=== PATIENT | female | born 1965 | race Caucasian/White ===

== ENCOUNTER 2018-03-15 19:52 | Inpatient (IN) ==
[2018-03-15] MEDS ORDERED: ONDANSETRON 4 MG/2 ML VIAL IV STA (20:15)
[2018-03-15] MEDS ORDERED: ORPHENADRINE 60 MG/2 ML VIAL IV STA (20:15)
[2018-03-15] MEDS ORDERED: ASPIRIN 325 MG TABLET PO STA (20:15)
[2018-03-15] MEDS ORDERED: KETOROLAC 30 MG/1 ML VIAL IV STA (20:15)
[2018-03-15] MEDS ORDERED: PANTOPRAZOLE 40 MG VIAL IV STA (20:21)
[2018-03-15] MEDS ORDERED: METOCLOPRAMIDE 10 MG/2 ML VIAL IV STA (20:21)
[2018-03-15 20:59] LABS: Basophils % 1.1 % (0.0-0.8); Eosinophils % 1.1 % (0.00-10.9); Hematocrit 26.3 VOL% (35.7-47.0); Hemoglobin 9.3 GM/DL (12.0-16.0); Immature Granulocytes % 1.9 %; Immature Granulocytes Absolute 0.07 #; Lymphocytes # 0.4 10*3/uL (1.4-4.0); Mean Corpuscular HGB Conc 35.4 GM/DL (32-36); Mean Corpuscular Hemoglobin 30 PG (27-34); Mean Corpuscular Volume 84.3 FL (87-102); Mean Platelet Volume 9.6 FL (9.6-12.0); Monocytes # 0.4 10*3/uL (0.11-0.8); Monocytes % 10.7 % (1.7-12.7); Neutrophils # 2.8 10*3/uL (1.4-7.4); Neutrophils % 74.2 % (38.7-73.9); Platelet Count 302 T/CUMM (130-400); Red Blood Count 3.12 MC/CUMM (3.8-5.5); Red Cell Distribution Width 15.6 % (9.3-17.3); White Blood Count 3.7 T/CUMM (4-12)
[2018-03-15 21:11] LABS: PT Patient Result 10.1 SECS; Partial Thromboplastin Time 29.2 SECS (0-40)
[2018-03-15 21:17] LABS: Apearance,Urine CLEAR (Clear); Bilirubin,Urine Negative (Negative); Blood, Urine Negative (Negative); Glucose,Urine (UA) Negative (Negative); Ketones,Urine Negative (Negative); Mucus,Urine Occasional /LPF (Occasional); Nitrite,Urine Negative (Negative); Protein,Urine Negative; Urine Color Colorless (Yellow); Urine Specific Gravity 1.002 (1.001-1.035); Urine Urobilinogen < 2.0 EU/DL (0.2-1.0); WBC,Urine <1 /HPF (0-6)
[2018-03-15 21:21] LABS: Alanine Aminotransferase 50 U/L (13-56); Albumin 3.6 G/DL (3.4-5.0); Alkaline Phosphatase 104 U/L (45-117); Aspartate Amino Transferase 57 U/L (0-37); Bilirubin,Total < 0.39 MG/DL (0.2-1.0); Blood Urea Nitrogen 12 MG/DL (7-18); Calcium 9.1 MG/DL (8.5-10.1); Glucose 114 MG/DL (74-106); Osmolality,Calculated 240.3 MOS/KG (273-304); Potassium 3.8 MMOL/L (3.5-5.1); Total Protein 7.1 G/DL (6.4-8.3); Troponin I < 0.015 NG/ML (0.00-0.045)
[2018-03-15 21:32] LABS: Sodium 119 MMOL/L (136-145)
[2018-03-15] MEDS ORDERED: ACETAMINOPHEN 325 MG TABLET PO PRN (22:47)
[2018-03-15] MEDS ORDERED: ONDANSETRON 4 MG/2 ML VIAL IV PRN (22:47)
[2018-03-15] MEDS ORDERED: LACTULOSE 20 GM/30 ML UDCUP PO PRN (22:47)
[2018-03-15] MEDS ORDERED: diphenhydrAMINE CAP 25 MG CAPSULE PO PRN (22:47)
[2018-03-15] MEDS ORDERED: LORazepam 0.5 MG TABLET PO PRN (23:11)
[2018-03-15] MEDS ORDERED: ALPRAZolam 0.25 MG TABLET PO PRN (23:18)
[2018-03-15 23:49] LABS: Creatinine,Urine Random < 13 MG/DL; Total Protein,Urine Random < 5 MG/DL
[2018-03-16] MEDS: LORazepam 1 MG TABLET PO SCH ×2 (00:03→00:14)
[2018-03-16] MEDS: SODIUM CHLORIDE 0.9% 1,000 ML IV SCH ×3 (00:13→15:51)
[2018-03-16 05:43] LABS: Basophils % 1.2 % (0.0-0.8); Eosinophils # 0.1 10*3/uL (0.0-0.87); Eosinophils % 1.5 % (0.00-10.9); Hematocrit 26.3 VOL% (35.7-47.0); Hemoglobin 9.1 GM/DL (12.0-16.0); Immature Granulocytes % 2.8 %; Immature Granulocytes Absolute 0.09 #; Lymphocytes # 0.5 10*3/uL (1.4-4.0); Lymphocytes % 15.8 % (21.3-54.2); Mean Corpuscular HGB Conc 34.6 GM/DL (32-36); Mean Corpuscular Hemoglobin 30 PG (27-34); Mean Corpuscular Volume 86.5 FL (87-102); Mean Platelet Volume 9.2 FL (9.6-12.0); Monocytes # 0.4 10*3/uL (0.11-0.8); Monocytes % 13.6 % (1.7-12.7); Neutrophils # 2.1 10*3/uL (1.4-7.4); Neutrophils % 65.1 % (38.7-73.9); Platelet Count 299 T/CUMM (130-400); Red Blood Count 3.04 MC/CUMM (3.8-5.5); Red Cell Distribution Width 15.5 % (9.3-17.3); White Blood Count 3.2 T/CUMM (4-12)
[2018-03-16] MEDS ORDERED: CLINDAMYCIN 300 MG CAPSULE PO SCH (06:00)
[2018-03-16 06:02] LABS: Calcium 8.3 MG/DL (8.5-10.1); Osmolality,Calculated 251.4 MOS/KG (273-304); Potassium 4.1 MMOL/L (3.5-5.1)
[2018-03-16 06:05] LABS: Calcium 8.5 MG/DL (8.5-10.1); Osmolality,Calculated 251.4 MOS/KG (273-304); Potassium 4.1 MMOL/L (3.5-5.1); Risk Ratio 2.45; VLDL CHOLESTEROL 12.6 MG/DL
[2018-03-16] MEDS ORDERED: cefTRIAXone 1,000 MG in SYRINGE 1 EACH IV SCH (08:30)
[2018-03-16] MEDS ORDERED: CYANOCOBALAMIN 500 MCG TABLET PO SCH (09:00)
[2018-03-16] MEDS ORDERED: CHOLECALCIFEROL 1,000 UNIT TABLET PO SCH (09:00)
[2018-03-16] MEDS ORDERED: PANTOPRAZOLE 40 MG TABLET PO SCH (09:00)
[2018-03-16 12:34] LABS: Calcium 8.5 MG/DL (8.5-10.1); Osmolality,Calculated 257.8 MOS/KG (273-304); Potassium 4.1 MMOL/L (3.5-5.1)
[2018-03-16 15:42] VITALS: BP 135/82
[2018-03-17 13:31] LABS: Osmolality, Urine 143 mOsm/kg (150 - 1150)
[2018-03-17 16:26] LABS: Osmolality, Serum 242 mOsm/kg (275 - 295)
== END 2018-03-16 15:15 | disposition home or self-care (01) | DRG 641 ==
LOC: N.ED 19:52 → N.EDINP 22:47 → N.5E 03-16 00:23
PROVIDERS: ADMIT Hospitalist; ATTEND Hospitalist

== ENCOUNTER 2018-03-27 12:51 | Inpatient (IN) ==
[2018-03-27] MEDS ORDERED: ALUMINUM/MAGNES/SIMETH MAX STR 30 ML UDCUP PO PRN (13:10)
[2018-03-27] MEDS ORDERED: ALPRAZolam 0.25 MG TABLET PO PRN (13:10)
[2018-03-27] MEDS ORDERED: ONDANSETRON 4 MG/2 ML VIAL IV PRN (13:10)
[2018-03-27] MEDS ORDERED: PROMETHAZINE INJ 25 MG in SODIUM CHLORIDE 0.9% 50 ML IV PRN (13:10)
[2018-03-27] MEDS ORDERED: MYLANTA/LIDO VISC 2:1 300 ML BOTTLE SWISH/SPIT PRN (13:10)
[2018-03-27] MEDS ORDERED: BENZTROPINE 2 MG/2 ML AMP IV PRN (13:10)
[2018-03-27] MEDS ORDERED: traMADol 50 MG TABLET PO PRN (13:10)
[2018-03-27] MEDS ORDERED: ACETAMINOPHEN 325 MG TABLET PO PRN (13:10)
[2018-03-27] MEDS ORDERED: MYLANTA/LIDO VISC 2:1 300 ML BOTTLE SWISH/SWAL PRN (13:10)
[2018-03-27] MEDS ORDERED: diphenhydrAMINE CAP 25 MG CAPSULE PO PRN (13:10)
[2018-03-27] MEDS ORDERED: chlorproMAZINE 25 MG TABLET PO PRN (13:10)
[2018-03-27] MEDS ORDERED: MAGNESIUM HYDROXIDE SUSP 30 ML UDCUP PO PRN (13:10)
[2018-03-27] MEDS ORDERED: TEMAZEPAM 7.5 MG CAPSULE PO PRN (13:10)
[2018-03-27] MEDS ORDERED: guaiFENesin 200 MG/10 ML UDCUP PO PRN (13:10)
[2018-03-27] MEDS ORDERED: chlorproMAZINE INJ 50 MG in SODIUM CHLORIDE 0.9% 100 ML IV PRN (13:10)
[2018-03-27] MEDS ORDERED: LACTULOSE 20 GM/30 ML UDCUP PO PRN (13:10)
[2018-03-27] MEDS ORDERED: chlorproMAZINE INJ 25 MG in SODIUM CHLORIDE 0.9% 100 ML IV PRN (13:10)
[2018-03-27] MEDS ORDERED: LOPERAMIDE 2 MG CAPSULE PO PRN ×2 (13:10)
[2018-03-27] MEDS ORDERED: SODIUM CHLORIDE 0.9% 1,000 ML IV SCH (13:30)
[2018-03-27] MEDS ORDERED: SODIUM CHLORIDE 3% INJ 500 ML IV SCH (15:30)
[2018-03-27 15:32] LABS: Basophils % 0.5 % (0.0-0.8); Hematocrit 27.2 VOL% (35.7-47.0); Hemoglobin 9.7 GM/DL (12.0-16.0); Immature Granulocytes % 0.5 %; Immature Granulocytes Absolute 0.02 #; Lymphocytes # 0.3 10*3/uL (1.4-4.0); Lymphocytes % 7.3 % (21.3-54.2); Mean Corpuscular HGB Conc 35.7 GM/DL (32-36); Mean Corpuscular Hemoglobin 30 PG (27-34); Mean Corpuscular Volume 85.3 FL (87-102); Mean Platelet Volume 9.5 FL (9.6-12.0); Monocytes # 0.3 10*3/uL (0.11-0.8); Monocytes % 6.6 % (1.7-12.7); Neutrophils # 3.6 10*3/uL (1.4-7.4); Neutrophils % 85.1 % (38.7-73.9); Platelet Count 310 T/CUMM (130-400); Red Blood Count 3.19 MC/CUMM (3.8-5.5); Red Cell Distribution Width 15.2 % (9.3-17.3); White Blood Count 4.3 T/CUMM (4-12)
[2018-03-27 16:11] LABS: Albumin 3.6 G/DL (3.4-5.0); Bilirubin,Total 0.4 MG/DL (0.2-1.0); Calcium 8.3 MG/DL (8.5-10.1); Osmolality,Calculated 242.9 MOS/KG (273-304); Total Protein 7.2 G/DL (6.4-8.3)
[2018-03-27 16:28] LABS: Apearance,Urine CLEAR (Clear); Bilirubin,Urine Negative (Negative); Blood, Urine Small mg/dL (Negative); Glucose,Urine (UA) Negative (Negative); Ketones,Urine Negative (Negative); Nitrite,Urine Negative (Negative); Protein,Urine Negative; RBC,Urine <1 /HPF (0-4); Urine Color Colorless (Yellow); Urine Specific Gravity 1.002 (1.001-1.035); Urine Urobilinogen < 2.0 EU/DL (0.2-1.0)
[2018-03-28 07:09] LABS: Calcium 8.6 MG/DL (8.5-10.1); Osmolality,Calculated 251.2 MOS/KG (273-304); Potassium 4.7 MMOL/L (3.5-5.1)
[2018-03-28 08:18] VITALS: BP 125/92
== END 2018-03-28 11:10 | disposition home or self-care (01) | DRG 641 ==
LOC: N.4E 13:40
PROVIDERS: ADMIT Specialist; ATTEND Specialist

== ENCOUNTER 2018-11-11 09:12 | Inpatient (IN) ==
[2018-11-11] MEDS ORDERED: FUROSEMIDE 100 MG/10 ML VIAL IV STA (10:00)
[2018-11-11 10:07] LABS: Hematocrit 34.4 VOL% (35.7-47.0); Hemoglobin 11.6 GM/DL (12.0-16.0); Immature Granulocytes % 9.9 %; Lymphocytes # 0.2 10*3/uL (1.4-4.0); Lymphocytes % 19.8 % (21.3-54.2); Mean Corpuscular HGB Conc 33.7 GM/DL (32-36); Mean Corpuscular Volume 94.5 FL (87-102); Mean Platelet Volume 11.1 FL (9.6-12.0); Monocytes % 8.9 % (1.7-12.7); Neutrophils % 60.4 % (38.7-73.9); Platelet Count 105 T/CUMM (130-400); Red Blood Count 3.64 MC/CUMM (3.8-5.5); Red Cell Distribution Width 15.6 % (9.3-17.3)
[2018-11-11 10:35] LABS: Albumin 2.4 G/DL (3.4-5.0); Bilirubin,Total 1.1 MG/DL (0.2-1.0); Calcium 8.8 MG/DL (8.5-10.1); Osmolality,Calculated 261.1 MOS/KG (273-304); Total Protein 5.9 G/DL (6.4-8.3)
[2018-11-11 11:18] LABS: Band Neutrophils 8 % (0-10); Lymphocytes 10 % (20-55); Myelocytes 1 %; Nucleated Red Blood Cells 2 (0-5); Segmented Neutrophils 73 % (50-85); Total Cells Counted 100
[2018-11-11 11:19] LABS: Platelet Estimate Decreased
[2018-11-11] MEDS ORDERED: VANCOMYCIN INJ 750 MG in SODIUM CHLORIDE 0.9% 250 ML IV STA (11:51)
[2018-11-11] MEDS ORDERED: methylPREDNISolone SOD SUC 125 MG/2 ML VIAL IV STA (11:51)
[2018-11-11] MEDS ORDERED: ALBUTEROL/IPRATROPIUM 3 ML NEB RESP TX STA (11:51)
[2018-11-11] MEDS ORDERED: MEROPENEM 1,000 MG in SODIUM CHLORIDE 0.9% 100 ML IV STA (11:52)
[2018-11-11] MEDS ORDERED: FLUCONAZOLE INJ 400 MG in PREMIX 1 EACH IV ONE (12:01)
[2018-11-11] MEDS ORDERED: SODIUM CHLORIDE 0.65% NASAL SPRAY 45 ML BOTTLE BOTH NARES PRN (14:35)
[2018-11-11] MEDS ORDERED: ONDANSETRON 4 MG/2 ML VIAL IV PRN (14:35)
[2018-11-11 15:08] LABS: ABG Base Excess 2.9 MMOL/L (-2.5-2.5); ABG HCO3 26.8 MMOL/L (20-26); ABG Oxygen Saturation 89.3 % (95-100); ABG PCO2 28.1 MM HG (35-48); ABG PH 7.547 (7.35-7.45); ABG PO2 55.1 MM HG (80-95); ABG TCO2 21.6 MMOL/L (23-27); Allen Test Positive; Pt O2 Delivery Device Other
[2018-11-11] MEDS: DEXAMETHASONE 4 MG/1 ML VIAL IV SCH ×2 (15:18→21:38)
[2018-11-11] MEDS: SODIUM CHLORIDE 0.9% 1,000 ML IV SCH (15:19)
[2018-11-11] MEDS: PROMETHAZINE 25 MG TABLET PO SCH ×3 (15:19→22:30)
[2018-11-11] MEDS: ENOXAPARIN 30 MG/0.3 ML SYRINGE SUBCUT SCH (15:19)
[2018-11-11] MEDS: CYANOCOBALAMIN 500 MCG TABLET PO SCH (15:19)
[2018-11-11] MEDS ORDERED: LORazepam 2 MG/1 ML VIAL IV ONE (15:43)
[2018-11-11 15:55] LABS: Apearance,Urine CLEAR (Clear); Bacteria,Urine Occasional /HPF (Few); Bilirubin,Urine Negative (Negative); Blood, Urine Negative (Negative); Glucose,Urine (UA) Negative (Negative); Hyaline Casts,Urine 5 /LPF (0-3); Ketones,Urine Negative (Negative); Mucus,Urine Moderate /LPF (Occasional); Nitrite,Urine Negative (Negative); Protein,Urine Negative; Urine Color Yellow (Yellow); Urine Specific Gravity 1.011 (1.001-1.035); Urine Urobilinogen < 2.0 EU/DL (0.2-1.0); WBC,Urine 1 /HPF (0-6)
[2018-11-11] MEDS ORDERED: LORazepam 2 MG/1 ML VIAL ONE (16:33)
[2018-11-11] MEDS: FILGRASTIM-SNDZ 300 MCG/0.5 ML SYRINGE SUBCUT SCH (17:50)
[2018-11-11] MEDS ORDERED: FUROSEMIDE 40 MG/4 ML VIAL IV ONE (18:47)
[2018-11-11] MEDS: SERTRALINE 100 MG TABLET PO SCH ×2 (20:01→20:18)
[2018-11-11] MEDS: MEROPENEM 1,000 MG in SODIUM CHLORIDE 0.9% 100 ML IV SCH (20:11)
[2018-11-11] MEDS ORDERED: LORazepam 1 MG TABLET PO SCH (21:00)
[2018-11-11] MEDS: PANTOPRAZOLE 40 MG TABLET PO SCH (21:39)
[2018-11-11] MEDS: DOCUSATE SODIUM 100 MG CAPSULE PO SCH (21:39)
[2018-11-11] MEDS: LORazepam 1 MG TABLET PO PRN (23:03)
[2018-11-12] MEDS: PROMETHAZINE 25 MG TABLET PO SCH ×3 (02:37→10:13)
[2018-11-12 03:16] LABS: ABG Base Excess 4.6 MMOL/L (-2.5-2.5); ABG HCO3 28.4 MMOL/L (20-26); ABG Oxygen Saturation 92.3 % (95-100); ABG PCO2 32.1 MM HG (35-48); ABG PH 7.531 (7.35-7.45); ABG PO2 63.6 MM HG (80-95); ABG TCO2 23.9 MMOL/L (23-27); Allen Test Positive; Pt O2 Delivery Device Other
[2018-11-12 03:26] LABS: Basophils % 0.6 % (0.0-0.8); Hematocrit 32.3 VOL% (35.7-47.0); Hemoglobin 10.7 GM/DL (12.0-16.0); Immature Granulocytes % 13.1 %; Immature Granulocytes Absolute 0.21 #; Lymphocytes # 0.2 10*3/uL (1.4-4.0); Lymphocytes % 13.1 % (21.3-54.2); Mean Corpuscular HGB Conc 33.1 GM/DL (32-36); Mean Corpuscular Volume 94.4 FL (87-102); NRBC # 0.07 10*3/uL; Neutrophils % 58.2 % (38.7-73.9); Platelet Count 106 T/CUMM (130-400); Red Blood Count 3.42 MC/CUMM (3.8-5.5); Red Cell Distribution Width 15.9 % (9.3-17.3); White Blood Count 1.6 T/CUMM (4-12)
[2018-11-12 03:35] LABS: Albumin 2.1 G/DL (3.4-5.0); Bilirubin,Total 0.7 MG/DL (0.2-1.0); Calcium 9.1 MG/DL (8.5-10.1); Osmolality,Calculated 271.2 MOS/KG (273-304); Total Protein 6.5 G/DL (6.4-8.3)
[2018-11-12 04:06] LABS: Band Neutrophils 13 % (0-10); Lymphocytes 17 % (20-55); Metamyelocytes 4 %; Myelocytes 4 %; Nucleated Red Blood Cells 3 (0-5); Segmented Neutrophils 47 % (50-85)
[2018-11-12 04:07] LABS: Platelet Estimate Decreased
[2018-11-12 04:08] LABS: Atypical Lymphocytes Few; Ovalocytes 1+; Reactive Lymphocytes 1+; Total Cells Counted 100
[2018-11-12] MEDS: MEROPENEM 1,000 MG in SODIUM CHLORIDE 0.9% 100 ML IV SCH ×3 (05:49→20:18)
[2018-11-12] MEDS: DEXAMETHASONE 4 MG/1 ML VIAL IV SCH ×3 (05:50→21:26)
[2018-11-12] MEDS ORDERED: FUROSEMIDE 40 MG/4 ML VIAL IV ONE (06:54)
[2018-11-12] MEDS ORDERED: LORazepam 2 MG/1 ML VIAL ONE (08:37)
[2018-11-12] MEDS: MYLANTA/LIDO VISC 2:1 300 ML BOTTLE SWISH/SWAL PRN ×2 (09:20→21:32)
[2018-11-12] MEDS: LORazepam 2 MG/1 ML VIAL IV PRN (09:20)
[2018-11-12] MEDS: FILGRASTIM-SNDZ 300 MCG/0.5 ML SYRINGE SUBCUT SCH (09:21)
[2018-11-12] MEDS: DICLOFENAC 1.3% PATCH 5/PACK TRANSDERM SCH (09:21)
[2018-11-12] MEDS: VANCOMYCIN INJ 1,000 MG in SODIUM CHLORIDE 0.9% 250 ML IV SCH ×2 (09:21→21:28)
[2018-11-12] MEDS: DOCUSATE SODIUM 100 MG CAPSULE PO SCH ×2 (09:22→21:24)
[2018-11-12] MEDS: CYANOCOBALAMIN 500 MCG TABLET PO SCH (09:22)
[2018-11-12] MEDS: FLUTICASONE 50 MCG NASAL SPRAY 16 GM BOTTLE BOTH NARES SCH (09:22)
[2018-11-12] MEDS: FLUCONAZOLE INJ 400 MG in PREMIX 1 EACH IV SCH (09:22)
[2018-11-12] MEDS: CHOLECALCIFEROL 1,000 UNIT TABLET PO SCH (09:23)
[2018-11-12] MEDS ORDERED: PROMETHAZINE 25 MG TABLET PO PRN (10:08)
[2018-11-12] MEDS ORDERED: BISACODYL 5 MG TABLET PO PRN (10:08)
[2018-11-12] MEDS: ALPRAZolam 0.25 MG TABLET PO PRN ×2 (13:59→21:23)
[2018-11-12] MEDS: MORPHINE 4 MG/1 ML VIAL IV PRN (14:02)
[2018-11-12] MEDS: CETIRIZINE 10 MG TABLET PO SCH (14:04)
[2018-11-12] MEDS: ENOXAPARIN 30 MG/0.3 ML SYRINGE SUBCUT SCH (14:04)
[2018-11-12] MEDS: SODIUM CHLORIDE 0.9% 1,000 ML IV SCH (15:38)
[2018-11-12] MEDS: POTASSIUM CHLORIDE 20 MEQ/15 ML UDCUP PER TUBE PRN ×2 (17:12→20:15)
[2018-11-12] MEDS: LORazepam 1 MG TABLET PO PRN (20:17)
[2018-11-12] MEDS: GABAPENTIN 100 MG CAPSULE PO SCH (21:24)
[2018-11-12] MEDS: PANTOPRAZOLE 40 MG TABLET PO SCH (21:24)
[2018-11-12] MEDS: SERTRALINE 100 MG TABLET PO SCH (21:24)
[2018-11-13 02:42] LABS: Allen Test Positive; Pt O2 Delivery Device BIPAP
[2018-11-13 02:43] LABS: ABG Base Excess 3.6 MMOL/L (-2.5-2.5); ABG HCO3 27.6 MMOL/L (20-26); ABG Oxygen Saturation 93.9 % (95-100); ABG PCO2 37.9 MM HG (35-48); ABG PH 7.467 (7.35-7.45); ABG PO2 74.2 MM HG (80-95); ABG TCO2 24.6 MMOL/L (23-27)
[2018-11-13 04:43] LABS: Basophils % 0.2 % (0.0-0.8); Hematocrit 31.8 VOL% (35.7-47.0); Hemoglobin 10.1 GM/DL (12.0-16.0); Immature Granulocytes % 9.3 %; Immature Granulocytes Absolute 0.41 #; Lymphocytes # 0.2 10*3/uL (1.4-4.0); Lymphocytes % 3.6 % (21.3-54.2); Mean Corpuscular HGB Conc 31.8 GM/DL (32-36); Mean Corpuscular Volume 98.5 FL (87-102); Mean Platelet Volume 11.8 FL (9.6-12.0); Monocytes % 11.3 % (1.7-12.7); NRBC # 0.29 10*3/uL; Neutrophils % 75.6 % (38.7-73.9); Platelet Count 96 T/CUMM (130-400); Red Blood Count 3.23 MC/CUMM (3.8-5.5); Red Cell Distribution Width 16.4 % (9.3-17.3); White Blood Count 4.4 T/CUMM (4-12)
[2018-11-13 04:56] LABS: Bilirubin,Total 0.7 MG/DL (0.2-1.0); Calcium 9.2 MG/DL (8.5-10.1); Osmolality,Calculated 280.7 MOS/KG (273-304)
[2018-11-13] MEDS: MEROPENEM 1,000 MG in SODIUM CHLORIDE 0.9% 100 ML IV SCH ×3 (04:59→20:56)
[2018-11-13 05:31] LABS: Anisocytosis 1+; Band Neutrophils 4 % (0-10); Lymphocytes 4 % (20-55); Metamyelocytes 2 %; Nucleated Red Blood Cells 2 (0-5); Platelet Estimate Decreased; Segmented Neutrophils 78 % (50-85); Total Cells Counted 100
[2018-11-13 05:32] LABS: Macrocytosis 1+
[2018-11-13] MEDS: DEXAMETHASONE 4 MG/1 ML VIAL IV SCH ×3 (06:49→21:04)
[2018-11-13] MEDS ORDERED: FUROSEMIDE 40 MG/4 ML VIAL IV ONE (08:04)
[2018-11-13] MEDS: CETIRIZINE 10 MG TABLET PO SCH (08:43)
[2018-11-13] MEDS: CHOLECALCIFEROL 1,000 UNIT TABLET PO SCH (08:43)
[2018-11-13] MEDS: CYANOCOBALAMIN 500 MCG TABLET PO SCH (08:43)
[2018-11-13] MEDS: DOCUSATE SODIUM 100 MG CAPSULE PO SCH ×2 (08:44→20:57)
[2018-11-13] MEDS: VANCOMYCIN INJ 1,000 MG in SODIUM CHLORIDE 0.9% 250 ML IV SCH ×2 (08:44→20:56)
[2018-11-13] MEDS: FLUTICASONE 50 MCG NASAL SPRAY 16 GM BOTTLE BOTH NARES SCH (08:45)
[2018-11-13] MEDS: DICLOFENAC 1.3% PATCH 5/PACK TRANSDERM SCH (08:45)
[2018-11-13] MEDS: FLUCONAZOLE INJ 400 MG in PREMIX 1 EACH IV SCH (09:54)
[2018-11-13] MEDS: POTASSIUM CHLORIDE 20 MEQ/15 ML UDCUP PER TUBE PRN ×2 (13:03→16:52)
[2018-11-13] MEDS: ENOXAPARIN 30 MG/0.3 ML SYRINGE SUBCUT SCH (13:36)
[2018-11-13] MEDS: SODIUM CHLORIDE 0.9% 1,000 ML IV SCH (13:45)
[2018-11-13] MEDS: GABAPENTIN 100 MG CAPSULE PO SCH (20:58)
[2018-11-13] MEDS: SERTRALINE 100 MG TABLET PO SCH (20:58)
[2018-11-13] MEDS: PANTOPRAZOLE 40 MG TABLET PO SCH (20:58)
[2018-11-13] MEDS: ALPRAZolam 0.25 MG TABLET PO PRN (21:04)
[2018-11-13] MEDS: LORazepam 2 MG/1 ML VIAL IV PRN (23:34)
[2018-11-14] MEDS: MEROPENEM 1,000 MG in SODIUM CHLORIDE 0.9% 100 ML IV SCH ×3 (04:49→21:30)
[2018-11-14 05:43] LABS: Basophils % 0.1 % (0.0-0.8); Hematocrit 30.9 VOL% (35.7-47.0); Hemoglobin 10.2 GM/DL (12.0-16.0); Immature Granulocytes % 9.8 %; Immature Granulocytes Absolute 0.88 #; Lymphocytes # 0.3 10*3/uL (1.4-4.0); Lymphocytes % 2.9 % (21.3-54.2); Mean Corpuscular Volume 97.2 FL (87-102); Mean Platelet Volume 12.6 FL (9.6-12.0); Monocytes % 7.4 % (1.7-12.7); NRBC # 0.51 10*3/uL; Neutrophils % 79.8 % (38.7-73.9); Red Blood Count 3.18 MC/CUMM (3.8-5.5); Red Cell Distribution Width 16.4 % (9.3-17.3)
[2018-11-14 06:00] LABS: Platelet Count 69 T/CUMM (130-400)
[2018-11-14 06:10] LABS: Calcium 9.3 MG/DL (8.5-10.1); Osmolality,Calculated 281.5 MOS/KG (273-304)
[2018-11-14 06:36] LABS: Anisocytosis Slight; Band Neutrophils 24 % (0-10); Lymphocytes 4 % (20-55); Macrocytosis Slight; Metamyelocytes 3 %; Myelocytes 2 %; Nucleated Red Blood Cells 4 (0-5); Platelet Estimate Decreased; Polychromasia 1+; Segmented Neutrophils 60 % (50-85); Total Cells Counted 100
[2018-11-14] MEDS: DEXAMETHASONE 4 MG/1 ML VIAL IV SCH ×3 (06:46→22:06)
[2018-11-14] MEDS: DOCUSATE SODIUM 100 MG CAPSULE PO SCH ×2 (09:05→21:30)
[2018-11-14] MEDS: CYANOCOBALAMIN 500 MCG TABLET PO SCH (09:05)
[2018-11-14] MEDS: CHOLECALCIFEROL 1,000 UNIT TABLET PO SCH (09:05)
[2018-11-14] MEDS: CETIRIZINE 10 MG TABLET PO SCH (09:05)
[2018-11-14] MEDS: DICLOFENAC 1.3% PATCH 5/PACK TRANSDERM SCH (09:06)
[2018-11-14] MEDS: VANCOMYCIN INJ 1,000 MG in SODIUM CHLORIDE 0.9% 250 ML IV SCH ×2 (09:06→22:05)
[2018-11-14] MEDS: FLUTICASONE 50 MCG NASAL SPRAY 16 GM BOTTLE BOTH NARES SCH (09:08)
[2018-11-14] MEDS: LORazepam 2 MG/1 ML VIAL IV PRN ×2 (09:57→20:20)
[2018-11-14] MEDS: FLUCONAZOLE INJ 400 MG in PREMIX 1 EACH IV SCH (10:13)
[2018-11-14] MEDS ORDERED: PROPOFOL 1,000 MG/100 ML BOTTLE IV ONE (10:29)
[2018-11-14] MEDS ORDERED: SUCCINYLCHOLINE 200 MG/10 ML VIAL ONE (10:54)
[2018-11-14] MEDS ORDERED: PROPOFOL 200 MG/20 ML VIAL IV ONE (10:54)
[2018-11-14] MEDS: PROPOFOL 1,000 MG/100 ML BOTTLE IV SCH ×2 (10:59→20:21)
[2018-11-14] MEDS ORDERED: DEXTROSE 50% 25 GM/50 ML SYRINGE IV PRN (11:42)
[2018-11-14] MEDS ORDERED: GLUCAGON 1 MG VIAL IM PRN (11:42)
[2018-11-14 12:46] LABS: ABG Base Excess 3.1 MMOL/L (-2.5-2.5); ABG HCO3 27.1 MMOL/L (20-26); ABG Oxygen Saturation 97.9 % (95-100); ABG PCO2 37.5 MM HG (35-48); ABG PH 7.463 (7.35-7.45); ABG TCO2 24.3 MMOL/L (23-27); Allen Test Positive; Pt O2 Delivery Device Ventilator
[2018-11-14] MEDS: INSULIN REGULAR 100 UNIT/ML SUBCUT SCH ×2 (12:56→18:01)
[2018-11-14] MEDS: SODIUM CHLORIDE 0.9% 1,000 ML IV SCH (13:49)
[2018-11-14] MEDS: PANTOPRAZOLE 40 MG TABLET PO SCH (21:30)
[2018-11-14] MEDS: GABAPENTIN 100 MG CAPSULE PO SCH (21:30)
[2018-11-14] MEDS: SERTRALINE 100 MG TABLET PO SCH (21:30)
[2018-11-15] MEDS: INSULIN REGULAR 100 UNIT/ML SUBCUT SCH ×4 (00:17→18:00)
[2018-11-15] MEDS: PROPOFOL 1,000 MG/100 ML BOTTLE IV SCH ×4 (02:30→19:30)
[2018-11-15 03:47] LABS: ABG Base Excess 3.1 MMOL/L (-2.5-2.5); ABG HCO3 27.2 MMOL/L (20-26); ABG Oxygen Saturation 97.7 % (95-100); ABG PCO2 34.5 MM HG (35-48); Allen Test Positive; Pt O2 Delivery Device Ventilator
[2018-11-15] MEDS: MEROPENEM 1,000 MG in SODIUM CHLORIDE 0.9% 100 ML IV SCH ×3 (04:02→19:49)
[2018-11-15 04:32] LABS: Prealbumin 6.5 MG/DL (20-40)
[2018-11-15] MEDS: DEXAMETHASONE 4 MG/1 ML VIAL IV SCH ×3 (06:17→21:42)
[2018-11-15] MEDS: FLUCONAZOLE INJ 400 MG in PREMIX 1 EACH IV SCH (08:40)
[2018-11-15] MEDS: FLUTICASONE 50 MCG NASAL SPRAY 16 GM BOTTLE BOTH NARES SCH (09:35)
[2018-11-15] MEDS: MORPHINE 4 MG/1 ML VIAL IV PRN (09:36)
[2018-11-15] MEDS: CETIRIZINE 10 MG TABLET PO SCH (09:40)
[2018-11-15] MEDS: DOCUSATE SODIUM 100 MG CAPSULE PO SCH ×2 (09:40→21:35)
[2018-11-15] MEDS: CYANOCOBALAMIN 500 MCG TABLET PO SCH (09:40)
[2018-11-15] MEDS: CHOLECALCIFEROL 1,000 UNIT TABLET PO SCH (09:40)
[2018-11-15] MEDS: DICLOFENAC 1.3% PATCH 5/PACK TRANSDERM SCH (09:45)
[2018-11-15] MEDS ORDERED: LORazepam 2 MG/1 ML VIAL ONE (10:08)
[2018-11-15] MEDS: LORazepam 2 MG/1 ML VIAL IV PRN (10:10)
[2018-11-15] MEDS ORDERED: VECURONIUM 10 MG VIAL IV ONE ×2 (10:26→11:01)
[2018-11-15] MEDS: VECURONIUM 10 MG VIAL IV PRN ×7 (11:05→21:50)
[2018-11-15] MEDS: VANCOMYCIN INJ 1,000 MG in SODIUM CHLORIDE 0.9% 250 ML IV SCH (11:40)
[2018-11-15] MEDS ORDERED: ENOXAPARIN 40 MG/0.4 ML SYRINGE SUBCUT SCH (12:00)
[2018-11-15 12:05] LABS: Pt O2 Delivery Device Ventilator
[2018-11-15 12:09] LABS: ABG Base Excess -0.2 MMOL/L (-2.5-2.5); ABG HCO3 24.2 MMOL/L (20-26); ABG Oxygen Saturation 92.9 % (95-100); ABG PCO2 46.1 MM HG (35-48); ABG PH 7.354 (7.35-7.45); ABG PO2 77.8 MM HG (80-95); ABG TCO2 23.4 MMOL/L (23-27)
[2018-11-15] MEDS: PHENYLEPHRINE DRIP 40 MG/250 ML PREMIX IV PRN (13:10)
[2018-11-15 14:12] LABS: Basophils % 0.2 % (0.0-0.8); Hematocrit 31.6 VOL% (35.7-47.0); Hemoglobin 9.9 GM/DL (12.0-16.0); Immature Granulocytes % 18.7 %; Immature Granulocytes Absolute 2.95 #; Lymphocytes # 0.4 10*3/uL (1.4-4.0); Lymphocytes % 2.5 % (21.3-54.2); Mean Corpuscular HGB Conc 31.3 GM/DL (32-36); Mean Corpuscular Volume 101.9 FL (87-102); Monocytes % 7.6 % (1.7-12.7); NRBC # 1.43 10*3/uL; Red Cell Distribution Width 17.4 % (9.3-17.3); White Blood Count 15.8 T/CUMM (4-12)
[2018-11-15 14:31] LABS: Albumin 1.8 G/DL (3.4-5.0); Bilirubin,Total 0.6 MG/DL (0.2-1.0); Calcium 8.5 MG/DL (8.5-10.1); Osmolality,Calculated 284.5 MOS/KG (273-304); Total Protein 4.9 G/DL (6.4-8.3)
[2018-11-15 14:34] LABS: Platelet Count 30 T/CUMM (130-400)
[2018-11-15 14:41] LABS: Band Neutrophils 5 % (0-10); Lymphocytes 8 % (20-55); Macrocytosis 1+; Metamyelocytes 3 %; Myelocytes 3 %; Nucleated Red Blood Cells 11 (0-5); Platelet Estimate Decreased; Polychromasia Few; Segmented Neutrophils 76 % (50-85); Total Cells Counted 100
[2018-11-15 14:42] LABS: Hypochromasia Slight
[2018-11-15] MEDS: SODIUM CHLORIDE 0.9% 1,000 ML IV SCH (15:00)
[2018-11-15] MEDS ORDERED: LANSOPRAZOLE ODT 30 MG TABLET PER TUBE SCH (21:00)
[2018-11-15] MEDS: SERTRALINE 100 MG TABLET PO SCH (21:35)
[2018-11-15] MEDS: GABAPENTIN 100 MG CAPSULE PO SCH (21:35)
[2018-11-15] MEDS: LORazepam 1 MG TABLET PO PRN (21:35)
[2018-11-16] MEDS: VANCOMYCIN INJ 1,000 MG in SODIUM CHLORIDE 0.9% 250 ML IV SCH ×2 (00:58→12:15)
[2018-11-16] MEDS: INSULIN REGULAR 100 UNIT/ML SUBCUT SCH ×4 (00:59→18:25)
[2018-11-16] MEDS: PROPOFOL 1,000 MG/100 ML BOTTLE IV SCH ×5 (01:01→20:48)
[2018-11-16 03:18] LABS: Allen Test Positive; Pt O2 Delivery Device Ventilator
[2018-11-16 03:19] LABS: ABG Base Excess 0.6 MMOL/L (-2.5-2.5); ABG Oxygen Saturation 98.9 % (95-100); ABG PCO2 37.6 MM HG (35-48); ABG PH 7.427 (7.35-7.45); ABG TCO2 22.2 MMOL/L (23-27)
[2018-11-16] MEDS: MEROPENEM 1,000 MG in SODIUM CHLORIDE 0.9% 100 ML IV SCH ×3 (04:53→19:52)
[2018-11-16 05:25] LABS: INR 1.1; PT Patient Result 11.6 SECS; Partial Thromboplastin Time 22.9 SECS (0-40)
[2018-11-16] MEDS: DEXAMETHASONE 4 MG/1 ML VIAL IV SCH ×3 (05:32→21:27)
[2018-11-16 05:42] LABS: Bilirubin,Total 0.7 MG/DL (0.2-1.0); Calcium 8.8 MG/DL (8.5-10.1); Osmolality,Calculated 285.4 MOS/KG (273-304); Total Protein 5.2 G/DL (6.4-8.3)
[2018-11-16 05:50] LABS: Basophils % 0.2 % (0.0-0.8); Hematocrit 33.8 VOL% (35.7-47.0); Hemoglobin 10.8 GM/DL (12.0-16.0); Immature Granulocytes % 28.9 %; Immature Granulocytes Absolute 4.86 #; Lymphocytes # 0.2 10*3/uL (1.4-4.0); Lymphocytes % 1.2 % (21.3-54.2); Mean Corpuscular Volume 100.3 FL (87-102); Monocytes % 7.4 % (1.7-12.7); NRBC # 3.24 10*3/uL; Neutrophils % 62.3 % (38.7-73.9); Red Blood Count 3.37 MC/CUMM (3.8-5.5); Red Cell Distribution Width 17.8 % (9.3-17.3); White Blood Count 16.8 T/CUMM (4-12)
[2018-11-16 05:53] LABS: Platelet Count 29 T/CUMM (130-400)
[2018-11-16 06:00] LABS: Band Neutrophils 1 % (0-10); Eosinophils 1 % (0-10); Lymphocytes 14 % (20-55); Metamyelocytes 2 %; Nucleated Red Blood Cells 19 (0-5); Platelet Estimate Decreased; Polychromasia Few; Segmented Neutrophils 78 % (50-85); Total Cells Counted 100
[2018-11-16] MEDS ORDERED: FUROSEMIDE 40 MG/4 ML VIAL IV ONE (08:11)
[2018-11-16] MEDS: FLUTICASONE 50 MCG NASAL SPRAY 16 GM BOTTLE BOTH NARES SCH (09:00)
[2018-11-16] MEDS: DICLOFENAC 1.3% PATCH 5/PACK TRANSDERM SCH (09:00)
[2018-11-16] MEDS: CYANOCOBALAMIN 500 MCG TABLET PO SCH (09:05)
[2018-11-16] MEDS: FLUCONAZOLE INJ 400 MG in PREMIX 1 EACH IV SCH (09:05)
[2018-11-16] MEDS: CHOLECALCIFEROL 1,000 UNIT TABLET PO SCH (09:05)
[2018-11-16] MEDS: CETIRIZINE 10 MG TABLET PO SCH (09:05)
[2018-11-16] MEDS: DOCUSATE SODIUM 100 MG CAPSULE PO SCH ×2 (09:05→21:23)
[2018-11-16] MEDS: MORPHINE 4 MG/1 ML VIAL IV PRN ×2 (09:45→23:37)
[2018-11-16] MEDS: FAMOTIDINE 20 MG/2 ML VIAL IV SCH ×2 (11:20→21:24)
[2018-11-16] MEDS: SODIUM CHLORIDE 0.9% 1,000 ML IV SCH (15:45)
[2018-11-16] MEDS: PHENYLEPHRINE DRIP 40 MG/250 ML PREMIX IV PRN (18:40)
[2018-11-16 18:53] VITALS: BP 82/65
[2018-11-16] MEDS: GABAPENTIN 100 MG CAPSULE PO SCH (21:23)
[2018-11-16] MEDS: SERTRALINE 100 MG TABLET PO SCH (21:26)
[2018-11-16] MEDS: VECURONIUM 10 MG VIAL IV PRN (23:22)
[2018-11-17] MEDS: INSULIN REGULAR 100 UNIT/ML SUBCUT SCH (00:35)
[2018-11-17] MEDS: PROPOFOL 1,000 MG/100 ML BOTTLE IV SCH (00:56)
[2018-11-17] MEDS ORDERED: ACETAMINOPHEN 325 MG/10.15 ML UDCUP PO PRN (01:04)
[2018-11-17] MEDS ORDERED: IBUPROFEN 100 MG/5 ML UDCUP PO PRN (01:14)
[2018-11-17] MEDS ORDERED: SODIUM CHLORIDE 0.45% 1,000 ML IV SCH (01:30)
[2018-11-17] MEDS: VECURONIUM 10 MG VIAL IV PRN (02:30)
[2018-11-17 02:53] LABS: Basophils # 0.1 10*3/uL (0.0-0.2); Basophils % 0.4 % (0.0-0.8); Hematocrit 37.1 VOL% (35.7-47.0); Hemoglobin 12.2 GM/DL (12.0-16.0); Immature Granulocytes % 33.8 %; Immature Granulocytes Absolute 7.36 #; Lymphocytes # 0.2 10*3/uL (1.4-4.0); Lymphocytes % 1.1 % (21.3-54.2); Mean Corpuscular HGB Conc 32.9 GM/DL (32-36); Mean Corpuscular Volume 103.6 FL (87-102); Monocytes % 6.9 % (1.7-12.7); NRBC # 5.78 10*3/uL; Neutrophils % 57.8 % (38.7-73.9); Red Blood Count 3.58 MC/CUMM (3.8-5.5); Red Cell Distribution Width 18.6 % (9.3-17.3); White Blood Count 21.8 T/CUMM (4-12)
[2018-11-17 02:57] LABS: Platelet Count 20 T/CUMM (130-400)
[2018-11-17 02:58] LABS: ABG Base Excess -6.1 MMOL/L (-2.5-2.5); ABG HCO3 19.4 MMOL/L (20-26); ABG Oxygen Saturation 97.4 % (95-100); ABG PCO2 43.8 MM HG (35-48); ABG TCO2 18.5 MMOL/L (23-27); Allen Test Positive; Pt O2 Delivery Device Ventilator
[2018-11-17] MEDS ORDERED: SODIUM BICARBONATE 50 MEQ/50 ML VIAL IV ONE (03:26)
[2018-11-17] MEDS ORDERED: EPINEPHrine 1 MG/10 ML SYRINGE IV ONE (03:27)
[2018-11-17] MEDS ORDERED: SODIUM BICARBONATE 50 MEQ/50 ML SYRINGE IV ONE (03:28)
[2018-11-17] MEDS ORDERED: ATROPINE 1 MG/10 ML SYRINGE IV ONE (03:34)
[2018-11-17] MEDS ORDERED: NOREPINEPHRINE 8 MG in SODIUM CHLORIDE 0.9% 242 ML IV PRN (03:40)
[2018-11-17] MEDS ORDERED: EPINEPHrine 1 MG/ML VIAL ONE (03:42)
[2018-11-17 03:48] LABS: Albumin 1.8 G/DL (3.4-5.0); Alkaline Phosphatase 396 U/L (45-117); Aspartate Amino Transferase 153 U/L (0-37); Blood Urea Nitrogen 41 MG/DL (7-18); Calcium 7.2 MG/DL (8.5-10.1); Glucose 257 MG/DL (74-106); Osmolality,Calculated 297.4 MOS/KG (273-304); Total Protein 4.8 G/DL (6.4-8.3)
[2018-11-17 03:50] LABS: Band Neutrophils 11 % (0-10); Lymphocytes 7 % (20-55); Metamyelocytes 4 %; Myelocytes 15 %; Nucleated Red Blood Cells 32 (0-5); Segmented Neutrophils 62 % (50-85); Total Cells Counted 100
[2018-11-17 03:51] LABS: Anisocytosis 1+
[2018-11-17 03:52] LABS: Macrocytosis 1+; Platelet Estimate Decreased
== END 2018-11-17 03:54 | disposition expired | DRG 208 ==
LOC: N.ED 09:12 → N.EDINP 13:10 → SUATTDRO 13:10 → N.ICU 13:43
PROVIDERS: ADMIT Internal Medicine; ATTEND Internal Medicine